=== PATIENT | female | born 1985 | race Two or more races ===

== ENCOUNTER 2017-11-30 16:53 | Emergency (ER) | payer MEDICAID ==
[~2017-11-30] VITALS: Ht 157.5 cm; Wt 72.6 kg
[~2017-11-30 16:53] MED LIST: CEPHALEXIN500 MG ORAL; HYDROCODON-ACE1 EA15 ORAL; KEFLEX500 MG ORAL; MACROBID100 MG ORAL; NKM; PRENATA CHEWAB1 EACH PO; TYLENOL EXTRA500 MG ORAL; ZOFRAN ODT4 MG ORAL
[2017-11-30 17:08] VITALS: BP 112/68
--- NOTE | 2017-11-30 17:14 | Emergency Room Report ---
History of Present Illness General Chief Complaint: Multiple Trauma/Fall Source: Patient Present Illness HPI Patient presents with complaints of pain to the back of the head Patient had a fall approximately noon tripping over a rug falling backwards and hitting the back of her head on a couch Denies any lapse of consciousness denies any chest pain denies any short of breath denies any focal weakness As the patient was having a pounding type pain to the back of the head 5 out of 10 she presents to the ER Denies any vomiting denies any visual changes Allergies: Coded Allergies: No Known Allergies (Unverified , 08/24/14) Patient History Past Medical History: see triage record Pertinent Family History: none Last Menstrual Period: 11/08/17 Reviewed Nursing Documentation: PMH: Agreed; PSxH: Agreed Nursing Documentation-PMH Past Medical History: No History, Except For Hx Seizures: Yes - as child (16 yrs old), not on any meds Review of Systems All Other Systems: negative except mentioned in HPI Physical Exam Vital Signs Date Time Temp Pulse Resp B/P (MAP) Pulse Ox O2 Delivery O2 Flow Rate FiO2 11/30/17 16:59 98.3 81 18 112/68 96 Room Air 98.2 Sp02 EP Interpretation: reviewed, normal General Appearance: well appearing, no apparent distress Head: normocephalic, atraumatic - No obvious palpable hematoma Eyes: bilateral eye PERRL, bilateral eye EOMI ENT: hearing grossly normal, normal pharynx, TMs + canals normal, uvula midline Neck: full range of motion, supple, no meningismus, no bony tend Respiratory: lungs clear, normal breath sounds, no rhonchi, no respiratory distress, no retraction, no accessory muscle use Cardiovascular #1: normal peripheral pulses, regular rate, rhythm, no edema, no gallop, no JVD, no murmur Gastrointestinal: normal bowel sounds, non tender, soft, no mass, no organomegaly, non-distended, no guarding, no hernia, no pulsatile mass, no rebound Genitourinary: no CVA tenderness Musculoskeletal: normal inspection Neurologic: oriented x3, responsive, 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, motor strength/ tone normal, sensory intact Psychiatric: mood/affect normal Skin: normal color, no rash, warm/dry, palpation normal Lymphatic: normal inspection, no adenopathy Medical Decision Making Diagnostic Impression: Primary Impression: Head injury ER Course Multiple differentials considered patient does not have any palpable hematomas There was no lapse of consciousness patient has not had any vomiting Patient does not meet criteria for imaging in the emergency room was provided medicine for pain and is stable for initial conservative outpatient trial Last Vital Signs Date Time Temp Pulse Resp B/P (MAP) Pulse Ox O2 Delivery O2 Flow Rate FiO2 11/30/17 17:08 98.2 81 18 112/68 96 Room Air 98.2 Status: improved Disposition: HOME, SELF-CARE Condition: Improved Scripts Acetaminophen (Tylenol) 325 Mg Tablet 650 MG ORAL Q12HR PRN for Prn Pain/Headache/Temp > 101, #12 TAB 0 Refills Prov: Steve Ribeiro DO 11/30/17 Additional Instructions: Patient is provided with the discharge instructions notified to follow up with primary doctor in the next 2-3 days otherwise return to the er with any worsening symptoms. Please note that this report is being documented using [employer]AGON technology. This can lead to erroneous entry secondary to incorrect interpretation by the dictating instrument. Steve Ribeiro DO Nov 30, 2017 17:14
[2017-11-30] MEDS ORDERED: TYLENOL325 MG ORAL (17:18)
[2017-11-30 17:24] VITALS: BP 112/68
== END 2017-11-30 17:25 | disposition home or self-care (01) ==
LOC: EMR 17:15
DX: S09.90XA Unspecified injury of head, initial encounter (principal); W01.198A Fall on same level from slipping, tripping and stumbling with subsequent striking against other object, initial encounter; Y92.89 Other specified places as the place of occurrence of the external cause
CPT/HCPCS: 99282